=== PATIENT | female | born 1985 | race Caucasian/White ===

== ENCOUNTER 2021-04-27 14:22 | Emergency (ER) | payer OTHER ==
[~2021-04-27] VITALS: Ht 160 cm; Wt 68.0 kg
[~2021-04-27 14:22] MED LIST: TIZANIDINE HCL2 MG PO
[2021-04-27] MEDS ORDERED: PRENATABS RX T1 EACH (14:38)
== END 2021-04-27 16:42 | disposition home or self-care (01) ==
LOC: ER 14:22
DX: O20.8 Other hemorrhage in early pregnancy (principal); Z3A.10 10 weeks gestation of pregnancy

== ENCOUNTER 2021-10-17 19:48 | Outpatient (CLI) | payer OTHER ==
[~2021-10-17 19:48] MED LIST changes: +PRENATABS RX T1 EACH
[2021-10-17] MEDS ORDERED: CHILDREN'S ASPI81 MG PO (20:09)
== END 2021-10-18 13:38 | disposition home or self-care (01) ==
LOC: OBS/DEL 19:48
PROVIDERS: ATTEND Specialist
DX: O36.8130 Decreased fetal movements, third trimester, not applicable or unspecified (principal); Z3A.35 35 weeks gestation of pregnancy; Z91.013 Allergy to seafood

== ENCOUNTER 2021-10-24 15:04 | Outpatient (CLI) | payer OTHER ==
[~2021-10-24 15:04] MED LIST changes: +CHILDREN'S ASPI81 MG PO
== END 2021-10-24 17:56 | disposition home or self-care (01) ==
LOC: NST 15:04
PROVIDERS: ATTEND Obstetrics & Gynecology
DX: Z34.83 Encounter for supervision of other normal pregnancy, third trimester (principal)

== ENCOUNTER 2021-11-07 10:02 | Outpatient (CLI) | payer OTHER | END 2021-11-07 11:30 | disposition home or self-care (01) | LOC: PRENATAL 10:02 | PROVIDERS: ATTEND Obstetrics & Gynecology Maternal & Fetal Medicine | DX: O26.849 Uterine size-date discrepancy, unspecified trimester (principal); O24.419 Gestational diabetes mellitus in pregnancy, unspecified control; O36.8199 Decreased fetal movements, unspecified trimester, other fetus; Z3A.38 38 weeks gestation of pregnancy ==

== ENCOUNTER 2021-11-07 14:45 | Inpatient (IN) | payer OTHER ==
[~2021-11-07] VITALS: Ht 160 cm; Wt 78.0 kg
== END 2021-11-13 15:48 | disposition home or self-care (01) | DRG 807 ==
LOC: LDR 11-11 10:00 → SURG-SUITE 11-11 13:36 → OB/GYN 11-17 14:45
PROVIDERS: ADMIT Specialist; ATTEND Specialist
PROC: 4A1HXCZ Monitoring of Products of Conception, Cardiac Rate, External Approach (ICD-10-PCS; 2021-11-11)
PROC: 10E0XZZ Delivery of Products of Conception, External Approach (ICD-10-PCS; principal; 2021-11-12)
PROC: 0UQG7ZZ Repair Vagina, Via Natural or Artificial Opening (ICD-10-PCS; 2021-11-12)
DX: O71.4 Obstetric high vaginal laceration alone (principal); Z37.0 Single live birth; Z3A.38 38 weeks gestation of pregnancy; Z20.822 Contact with and (suspected) exposure to COVID-19